=== PATIENT | female | born 1950 | race Caucasian/White ===

== ENCOUNTER 2017-07-07 21:09 | Observation (INO) | payer OTHER ==
[~2017-07-07] VITALS: Ht 167.6 cm; Wt 72.0 kg
[2017-07-07] MEDS ORDERED: FOSI10 PO (21:40)
[2017-07-07 22:26] LABS: BASOPHILS ABSOLUTE AUTO 0.04 K/mm3 (0.00-0.23); BASOPHILS PERCENT AUTO 1 % (0-2); EOSINOPHILS ABSOLUTE AUTO 0.12 K/mm3 (0.00-0.68); EOSINOPHILS PERCENT AUTO 2 % (0-6); Hematocrit 43.7 % (33.0-51.0); Hemoglobin 14.1 g/dL (11.5-16.0); IMMATURE GRAN ABSOLUTE AUTO 0.02 K/mm3 (0.00-0.10); IMMATURE GRAN PERCENT AUTO 0 % (0-1); LYMPHOCYTES ABSOLUTE AUTO 2.06 K/mm3 (0.84-5.20); LYMPHOCYTES PERCENT AUTO 29 % (21-46); MONOCYTES ABSOLUTE AUTO 0.53 K/mm3 (0.16-1.47); MONOCYTES PERCENT AUTO 8 % (4-13); Mean Corpuscular HGB 27.2 pg (26.0-34.0); Mean Corpuscular HGB Conc 32.3 g/dL (31.5-36.5); Mean Corpuscular Volume 84 fL (80-100); Mean Platelet Volume 9.9 fL (9.1-12.4); NEUTROPHILS ABSOLUTE AUTO 4.26 K/mm3 (1.96-9.15); NEUTROPHILS PERCENT AUTO 61 % (41-73); Platelet Count 209 K/mm3 (150-400); RDW Coefficient Variation 12.7 % (11.7-14.2); RDW Standard Deviation 38.9 fL (35.1-46.3); Red Blood Cell Count 5.19 M/mm3 (3.80-5.20); White Blood Cell Count 7.03 K/mm3 (4.00-11.30)
[2017-07-07 22:46] LABS: Alanine Aminotransfer (ALT/SGP 22 U/L (12-78); Albumin/Globulin Ratio 1.1 (0.8-1.8); Alk Phos 63 U/L (50-136); Anion Gap 10 mmol/L (6-16); Aspartate Aminotrans (AST/SGOT 25 U/L (12-37); Bilirubin, Total 0.2 mg/dL (0.1-1.0); Blood Urea Nitrogen 17 mg/dL (8-24); Bun/Creatinine Ratio 18.7 (12.0-20.0); CO2, Blood 26 mmol/L (21-32); Chloride, Blood 108 mmol/L (98-108); Creatinine, Blood 0.91 mg/dL (0.40-1.00); Globulin, Blood 3.7 g/dL (2.2-4.0); Glomerular Filtration Rate >60 (60-); Glucose, Blood 115 mg/dL (70-99); Potassium, Blood 3.6 mmol/L (3.5-5.5); Sodium, Blood 144 mmol/L (136-145); Total Protein, Blood 7.7 g/dL (6.4-8.2); Troponin I <0.015 ng/mL (0.000-0.040)
[2017-07-07] MEDS ORDERED: CYCL0.05OP BOTHEYES (23:25)
[2017-07-08] MEDS ORDERED: METO25 PO (15:46)
[2017-07-08] MEDS ORDERED: XARELTO20 MG PO (15:46)
== END 2017-07-08 17:09 | disposition home or self-care (01) ==
LOC: ER 21:09 → PCU 21:10
PROVIDERS: Emergency Medicine
DX: I48.91 Unspecified atrial fibrillation (principal); I11.0 Hypertensive heart disease with heart failure; I50.30 Unspecified diastolic (congestive) heart failure; Z79.899 Other long term (current) drug therapy
CPT/HCPCS: 36415; 71045; 80053; 83735; 84484; 85025; 93005; 93010; 93306; 96372; 96374; 99285; G0378; J1650; J7030

== ENCOUNTER → 2020-02-07 | Outpatient (CLI) | payer OTHER ==
[~2020-02-07] MED LIST: CYCL0.05OP BOTHEYES; FOSI10 PO; METO25 PO; XARELTO20 MG PO
== END | disposition home or self-care (01) ==
LOC: LAB SHORT 11:59 → PLD 11:59
DX: D48.5 Neoplasm of uncertain behavior of skin (principal)
CPT/HCPCS: 88305

== ENCOUNTER → 2020-02-21 | Outpatient (CLI) | payer OTHER ==
[~2020-02-21] MED LIST changes: +Fosinopril Sodi20 MG; +XARELTO20 MG; -XARELTO20 MG PO
== END ==
LOC: PLD 15:14 → LAB SHORT 15:14
DX: C44.629 Squamous cell carcinoma of skin of left upper limb, including shoulder (principal)
CPT/HCPCS: 88305

== ENCOUNTER 2020-03-12 07:28 | Day surgery (SDC) | payer OTHER ==
[~2020-03-12] VITALS: Wt 69.1 kg
== END 2020-03-12 10:12 | disposition home or self-care (01) ==
LOC: ORSCSDS 07:28
PROVIDERS: Internal Medicine Gastroenterology
PROC: 0DBM8ZX Excision of Descending Colon, Via Natural or Artificial Opening Endoscopic, Diagnostic (ICD-10-PCS; principal; 2020-03-12 09:00)
PROC: 0DBN8ZX Excision of Sigmoid Colon, Via Natural or Artificial Opening Endoscopic, Diagnostic (ICD-10-PCS; principal; 2020-03-12 09:00)
DX: Z12.11 Encounter for screening for malignant neoplasm of colon (principal); Z83.71 Family history of colonic polyps; D12.4 Benign neoplasm of descending colon; K63.5 Polyp of colon; K57.30 Diverticulosis of large intestine without perforation or abscess without bleeding; I48.0 Paroxysmal atrial fibrillation; I10 Essential (primary) hypertension; Z79.01 Long term (current) use of anticoagulants; Z79.899 Other long term (current) drug therapy
CPT/HCPCS: 88305; J0461; J2405; J2704; J7120

== ENCOUNTER 2020-08-26 06:15 | Day surgery (SDC) | payer OTHER ==
--- NOTE | 2020-08-26 07:04 | NUR ---
08/26/20 0704 Danii Mcguire PLACED AT 0700. PT TOLERATED PLACEMENT WELL.
== END 2020-08-26 08:21 | disposition home or self-care (01) ==
LOC: ORSCSDS 06:15
PROVIDERS: Ophthalmology
PROC: 08RJ3JZ Replacement of Right Lens with Synthetic Substitute, Percutaneous Approach (ICD-10-PCS; principal; 2020-08-26 07:30)
DX: H25.11 Age-related nuclear cataract, right eye (principal); I10 Essential (primary) hypertension; Z87.891 Personal history of nicotine dependence; Z79.01 Long term (current) use of anticoagulants; Z79.899 Other long term (current) drug therapy
CPT/HCPCS: A9270; J2001; J2250; J3010; V2632

== ENCOUNTER → 2022-12-03 | Outpatient (CLI) | payer OTHER ==
[2022-12-03 09:15] LABS: BASOPHILS ABSOLUTE AUTO 0.02 K/mm3 (0.00-0.23); BASOPHILS PERCENT AUTO 0 % (0-2); EOSINOPHILS ABSOLUTE AUTO 0.05 K/mm3 (0.00-0.68); EOSINOPHILS PERCENT AUTO 1 % (0-6); Hematocrit 41.5 % (33.0-51.0); Hemoglobin 13.5 g/dL (11.5-16.0); IMMATURE GRAN PERCENT AUTO 0 % (0-1); LYMPHOCYTES ABSOLUTE AUTO 1.35 K/mm3 (0.84-5.20); LYMPHOCYTES PERCENT AUTO 28 % (21-46); MONOCYTES ABSOLUTE AUTO 0.56 K/mm3 (0.16-1.47); MONOCYTES PERCENT AUTO 12 % (4-13); Mean Corpuscular HGB 27.3 pg (26.0-34.0); Mean Corpuscular HGB Conc 32.5 g/dL (31.5-36.5); Mean Corpuscular Volume 84 fL (80-100); Mean Platelet Volume 9.3 fL (9.1-12.4); NEUTROPHILS ABSOLUTE AUTO 2.79 K/mm3 (1.96-9.15); NEUTROPHILS PERCENT AUTO 59 % (41-73); Platelet Count 184 K/mm3 (150-400); RDW Coefficient Variation 13.2 % (11.7-14.2); RDW Standard Deviation 40.7 fL (35.1-46.3); Red Blood Cell Count 4.94 M/mm3 (3.80-5.20); White Blood Cell Count 4.77 K/mm3 (4.00-11.30)
[2022-12-03 09:28] LABS: Alanine Aminotransfer (ALT/SGP 16 U/L (12-78); Albumin, Blood 3.9 g/dL (3.4-5.0); Albumin/Globulin Ratio 1.3 (0.8-1.8); Alk Phos 58 U/L (50-136); Anion Gap 3 mmol/L (6-16); Aspartate Aminotrans (AST/SGOT 16 U/L (12-37); Bilirubin, Total 0.6 mg/dL (0.1-1.0); Blood Urea Nitrogen 15 mg/dL (8-24); CHOL/HDL RATIO 2.5; CO2, Blood 29 mmol/L (21-32); Calcium, Blood 9.1 mg/dL (8.5-10.1); Chloride, Blood 110 mmol/L (98-108); Cholesterol 188 mg/dL (50-200); Creatinine, Blood 0.94 mg/dL (0.40-1.00); Glomerular Filtration Rate 65 (60-); Glucose, Blood 108 mg/dL (70-99); HDL Cholesterol 76 mg/dL (>39); LDL/HDL RATIO 1.3; Low Density Lipoprotein Chol 99 mg/dL (0-110); Potassium, Blood 4.7 mmol/L (3.5-5.5); Sodium, Blood 142 mmol/L (136-145); Total Protein, Blood 6.9 g/dL (6.4-8.2); Triglycerides 67 mg/dL (30-160); Very Low Density Lipoprot Chol 13 mg/dL (6-32)
== END ==
LOC: LAB SHORT 06:36
PROVIDERS: Registered Nurse
DX: Z00.00 Encounter for general adult medical examination without abnormal findings (principal); E78.00 Pure hypercholesterolemia, unspecified; I10 Essential (primary) hypertension; R73.9 Hyperglycemia, unspecified
CPT/HCPCS: 36415; 80053; 80061; 83036; 85025

== ENCOUNTER 2025-04-23 10:32 | Observation (INO) | payer BC ==
[~2025-04-23] VITALS: Ht 162.6 cm; Wt 72.2 kg
[~2025-04-23 10:32] MED LIST changes: +XARELTO15 MG PO; -XARELTO20 MG
[2025-04-23] MEDS ORDERED: NS 1,000 ML IV SCH (11:35)
[2025-04-23] MEDS ORDERED: Propofol 10mg/ml 20 ml Vial (Procedural) IV SCH (11:35)
[2025-04-23] MEDS ORDERED: Magnesium Sulf 2 GM/Water 50ML 50 ML IV ONE (12:30)
[2025-04-23] MEDS ORDERED: FLU VACC TS2025(65UP)/MF59C/PF 45 MCG/0.5 ML SYRINGE IM SCH (13:15)
[2025-04-23] MEDS ORDERED: Doxycycline Mo100 M1 PO (15:01)
[2025-04-23] MEDS ORDERED: LOSA50 PO (15:01)
[2025-04-23] MEDS ORDERED: BENZ100A PO (15:05)
[2025-04-23 15:12] VITALS: BP 129/92
[2025-04-23 16:09] VITALS: BP 161/81
[2025-04-23 18:41] VITALS: BP 119/73
--- NOTE | 2025-04-23 19:03 | NUR ---
SHIFT SUMMARY PATIENT AOX4 ABLE TO MAKE NEEDS KNOWN DENIES SOB OR CP. VITALS ARE STABLE HR IS SR WITH PACs AND PAFIB DID HAVE A 10 BEAT RUN SVT UNSUSTAINED HOSPITLAIST AWARE.
[2025-04-23 19:15] VITALS: BP 121/79
--- NOTE | 2025-04-23 23:30 | NUR ---
PTS O2 SAT WHEN SLEEPING WENT DOWN TO 85%. PUT HER ON 2L VIA NC. CALLED AND HE ORDERED A OVERNIGHT SLEEP TEST BUT PT STATED THAT SHE ALREADY HAD A TEST DONE AND REFUSED TO DO ANOTHER TEST.
[2025-04-24 00:09] VITALS: BP 126/69
[2025-04-24 01:19] LABS: Influenza A/2009-H1 Not Detected (NOT DETECT); SARS-Cov-2 (COVID-19), BioFire Not Detected (NOT DETECT)
[2025-04-24 04:05] VITALS: BP 110/70
--- NOTE | 2025-04-24 04:31 | NUR ---
SHIFT SUMMARY ALERT ORIENTED X 4 ABLE TO VERBALIZE NEEDS .CALLS APPROPRIATELY. SHES ABLE TO AMBULATE AD ZEUS BUT HAS BEEN IN BED THIS SHIFT. SHE HAS A PUREWICK DRAINING YELLOW URINE R/T RECEIVING LASIX AND FREQUENT URINATION. NO C/O PAIN THIS SHIFT. HER O2 SAT WENT DOWN TO 85% WHILE SLEEPING SO I PUT HER ON 2L VIA NC SATTING 95-100%.. SHE REFUSED TO HAVE A OVERNIGHT OXYGEN DONE STATING THAT SHE ALREADY HAD ONE DONE. HR IS RUNNING IN THE 60 S-80 S. BP IS STABLE. REMAINS ON TELEMETRY AT [facility] WITH PACS AND PAROXYSMAL AFIB. . SHE'S TOLERATING A HEART HEALTHY DIET. ABLE TO TAKE MEDS WHOLE WITH WATER. BED IN LOWEST POSITION. CALL LIGHT IN REACH. CALLS APPROPRIATELY.
[2025-04-24 05:24] LABS: Hematocrit 30.4 % (33.0-51.0); Hemoglobin 9.4 g/dL (11.5-16.0); Mean Corpuscular HGB Conc 30.9 g/dL (31.5-36.5); Mean Corpuscular Volume 83 fL (80-100); NRBC ABSOLUTE 0.00 K/mm3 (0.00-0.02); NRBC Auto 0.0 /100 WBC (0.0-0.2); Platelet Count 116 K/mm3 (150-400); RDW Coefficient Variation 14.7 % (11.7-14.2); RDW Standard Deviation 44.2 fL (35.1-46.3)
[2025-04-24 05:38] LABS: Anion Gap 12.0 mmol/L (3-11); Blood Urea Nitrogen 20.0 mg/dL (8-24); CO2, Blood 24.0 mmol/L (21-32); Calcium, Blood 8.6 mg/dL (8.5-10.1); Chloride, Blood 108.0 mmol/L (98-108); Creatinine, Blood 1.03 mg/dL (0.40-1.00); Glucose, Blood 97.0 mg/dL (70-99); Potassium, Blood 3.7 mmol/L (3.5-5.5); Sodium, Blood 140.0 mmol/L (136-145)
[2025-04-24 07:40] VITALS: BP 137/85
[2025-04-24 10:35] VITALS: BP 128/87
[2025-04-24] MEDS ORDERED: FURO20 PO (11:21)
[2025-04-24] MEDS ORDERED: METO100ER PO (11:21)
--- NOTE | 2025-04-24 13:44 | NUR ---
shift summary discharge patient aox4 able to make needs known denies cp[ or sob vitals stable independent tolerating meals. patient educated on all discharge instructions with at bedside. iv removed.
== END 2025-04-24 12:55 | disposition home or self-care (01) ==
LOC: ER 10:32 → PCU 10:33
PROVIDERS: ADMIT Internal Medicine
DX: I48.19 Other persistent atrial fibrillation (principal); I11.0 Hypertensive heart disease with heart failure; I50.31 Acute diastolic (congestive) heart failure; I27.20 Pulmonary hypertension, unspecified; G31.84 Mild cognitive impairment of uncertain or unknown etiology; Z87.891 Personal history of nicotine dependence; Z79.01 Long term (current) use of anticoagulants; Z79.899 Other long term (current) drug therapy
CPT/HCPCS: 0202U; 36415; 80048; 83735; 84145; 85027; 92960; 93005; 93010; 93306; 94760; 96375-59; 96376; 99152; 99285-25; A9270; G0378; J1938; J2704; J3475; J7030